=== PATIENT | male | born 1955 | race Hispanic/Latino ===

== ENCOUNTER → 2017-09-07 | Outpatient (CLI) | payer OTHER ==
--- NOTE | 2017-09-07 12:10 | Diagnostic Imaging Report ---
PROCEDURE: Frontal and lateral views of the chest. COMPARISON: None. INDICATIONS: CHRONIC COUGH FINDINGS: Lines/tubes: None. Lungs: Airspace opacity in the left lung base. The right lung is clear. Pleura: There is no pleural effusion or pneumothorax. Heart and mediastinum: The heart and the mediastinum are normal. Bones: No acute bony abnormality. Degenerative changes of the thoracic spine. IMPRESSION: Airspace opacity in the left lung base may represent a developing pneumonia. Dictated by: Micky Alegre M.D. on 09/07/2017 at 12:10 Electronically approved by: Micky Alegre M.D. on 09/07/2017 at 12:10
== END ==
LOC: RAD 11:17
PROVIDERS: ATTEND Family Medicine
DX: R05 Cough (principal)
CPT/HCPCS: 71046

== ENCOUNTER → 2017-09-19 | Outpatient (CLI) | payer OTHER ==
--- NOTE | 2017-09-19 14:59 | Diagnostic Imaging Report ---
PROCEDURE: X-RAY CHEST, TWO VIEWS COMPARISON: [facility], DX, CHEST 2 VIEWS, 09/07/2017, 12:28. INDICATIONS: pneumonia FINDINGS: LUNGS: Airspace opacity in the left lung base is increased. PLEURA: No effusions or pneumothorax. HEART \T\ MEDIASTINUM: The heart is within normal size-limits. BONES \T\ SOFT TISSUES: No acute findings. CONCLUSION: Persistent airspace opacity in the left lung base. Que Geller D.O. Dictated by: Que Geller D.O. on 09/19/2017 at 15:00 Electronically approved by: Que Geller D.O. on 09/19/2017 at 15:00
== END ==
LOC: RAD 14:20
PROVIDERS: ATTEND Family Medicine
DX: Z09 Encounter for follow-up examination after completed treatment for conditions other than malignant neoplasm (principal); J18.9 Pneumonia, unspecified organism
CPT/HCPCS: 71046

== ENCOUNTER → 2017-09-28 | Outpatient (CLI) | payer OTHER ==
[~2017-09-28] MED LIST: IOPAMIDOL 370 MG/ML 200 ML INFUS..BTL INJ ONE; SODIUM CHLORIDE 0.9% 50ML 50 ML ONE
[2017-09-28 16:58] LABS: BLOOD UREA NITROGEN 10 mg/dL (7-26); BUN/CREATININE RATIO 13 (6-25); CREATININE, SERUM 0.78 mg/dL (0.72-1.25); EST GLOMERULAR FILTRATION RATE > 60 ML/MIN (60-)
--- NOTE | 2017-09-28 18:17 | Diagnostic Imaging Report ---
PROCEDURE: CT scan of the chest WITH intravenous contrast, using standard protocol. TECHNIQUE: The chest was scanned utilizing a multidetector helical scanner from the lung apex through the level of the adrenal glands after the IV administration of 100 cc of Isovue 370. Coronal and sagittal multiplanar reformations were obtained. COMPARISON: Chest radiograph from 09/19/2017. INDICATIONS: abnormal chest xray, cough FINDINGS: Lines/tubes: None. Lungs and Airways: There is pulmonary fibrosis with a basilar predominance. The left lung is affected worse than the right. The findings of pulmonary fibrosis were not present on images of the lung bases from the prior CT of 03/23/2007. There are subpleural reticular opacities, architectural distortion, and traction bronchiectasis, particularly in the left lung base. No significant honeycombing. Areas of groundglass opacity are seen in the upper lobes (for example series 3, image 35). A 7 mm triangular nodule is seen along the minor fissure (series 3, image 55). Pleura: No pleural effusion or pneumothorax. Heart and mediastinum: The thyroid gland is normal. No significant mediastinal, hilar or axillary lymphadenopathy is seen. The heart and pericardium are within normal limits. Soft tissues: Normal. Abdomen: An 8mm right adrenal nodule (series 2, image 115) has been present since at least 2006 and is most likely benign. Bones: The visualized bony thorax is within normal limits. IMPRESSION: 1. 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 2. A 7 mm nodule along the minor fissure is probably an intrapulmonary lymph node. Consider followup CT in 6 months to ensure stability. Dictated by: Jeff Horner M.D. on 09/28/2017 at 18:18 Electronically approved by: Jeff Horner M.D. on 09/28/2017 at 18:18
== END ==
LOC: CT 16:12
PROVIDERS: ATTEND Family Medicine
DX: R91.8 Other nonspecific abnormal finding of lung field (principal)
CPT/HCPCS: 36415; 71260; 82565; 84520; Q9967

== ENCOUNTER → 2024-01-11 | Day surgery (SDC) | payer MEDICARE, OTHER ==
[2024-01-09 11:19] LABS: BASOPHILS % 0.2 % (0.0-1.0); EOSINOPHILS # (AUTO) 0.1 (0.0-0.4); EOSINOPHILS % 1.3 % (0.0-6.0); HEMATOCRIT 31.1 % (38.2-49.6); HEMOGLOBIN 9.8 g/dL (14.0-18.0); LYMPHOCYTES # (AUTO) 1.2 (1.0-3.2); MEAN CORPUSCULAR HEMOGLOBIN 29.3 pg (28-32); MEAN CORPUSCULAR HGB CONC 31.5 g/dL (31-35); MEAN CORPUSCULAR VOLUME 92.8 fL (81-99); MONOCYTES # (AUTO) 0.4 (0.2-0.8); MONOCYTES % 7.7 % (4.4-11.3); NEUTROPHILS # (AUTO) 3.8 (2.1-6.9); PLATELET COUNT 155 x10e3/uL (140-360); RED BLOOD COUNT 3.35 x10e6/uL (4.3-5.7); RED CELL DISTRIBUTION WIDTH 14.4 % (11.7-14.4)
[~2024-01-11] MED LIST changes: +ALBUTEROL0.63 MG/3 NEB; +BACTRIM DS TAB1 EACH PO; +BUMETANIDE1 MG PO; +COREG12.5 MG PO; +FLONASE ALLERG9.9 ML INH; +FLORINEF ACETA0.1 MG PO; +HUMALOG MI100 UNIT/2 SQ; -IOPAMIDOL 370 MG/ML 200 ML INFUS..BTL INJ ONE; +LANTUS 3ML100 UNITS/ SC; +LIDOCAINE HCL 2% LOCAL INJ 5 ML SDV VIAL INJ ONE; +MAGNESIUM OXID500 MG PO; +MULTI-VITAMIN1 EACH PO; +MYSOLINE50 MG PO; +NORVASC2.5 MG PO; +OS-CAL 500+D T1 EACH PO; +PREDNISONE10 MG PO; +PROGRAF1 MG PO; +PROPOFOL IV EMULSION 10 MG/ML 20 ML VIAL ONE; +PROTONIX20 MG PO; -SODIUM CHLORIDE 0.9% 50ML 50 ML ONE; +VFEND PO; +ZITHROMAX250 MG PO; +ZOCOR20 MG PO
[2024-01-11] MEDS: LACTATED RINGER'S 1,000 ML ONE (06:27)
[2024-01-11 08:20] VITALS: BP 151/82; PULSE 80; RESP 17; O2SAT 97
== END | disposition home or self-care (01) ==
LOC: OR 05:37
PROVIDERS: ATTEND Internal Medicine Gastroenterology
DX: K29.50 Unspecified chronic gastritis without bleeding (principal); D12.2 Benign neoplasm of ascending colon; D12.3 Benign neoplasm of transverse colon; K31.A11 Gastric intestinal metaplasia without dysplasia, involving the antrum; K57.30 Diverticulosis of large intestine without perforation or abscess without bleeding; K64.8 Other hemorrhoids; D50.9 Iron deficiency anemia, unspecified; E66.9 Obesity, unspecified; I10 Essential (primary) hypertension; E78.5 Hyperlipidemia, unspecified; E11.9 Type 2 diabetes mellitus without complications; E66.01 Morbid (severe) obesity due to excess calories; Z01.810 Encounter for preprocedural cardiovascular examination; Z01.812 Encounter for preprocedural laboratory examination; Z79.4 Long term (current) use of insulin; Z79.899 Other long term (current) drug therapy; Z68.32 Body mass index [BMI] 32.0-32.9, adult; Z86.16 Personal history of COVID-19; Z87.891 Personal history of nicotine dependence
CPT/HCPCS: 36415 ×2; 43239; 45385; 82948; 85025; 88305; 88342; 93005; J2001; J2704; J7121